=== PATIENT | male | born 1995 | race Caucasian/White ===

== ENCOUNTER 2021-02-07 08:28 | Emergency (ER) | payer MEDICAID, SELFPAY ==
[2021-02-07 08:29] VITALS: BP 140/72; PULSE 85; RESP 18; TEMP 37.1; O2SAT 98; BMI 29.2
--- NOTE | 2021-02-07 08:56 | HMH.EDABDPAI ---
ED Disposition Clinical Impression: Gastroenteritis, Fatty liver Disposition: Home, Self-Care Condition on Discharge: Good Instructions: DI for Acute Abdominal Pain Prescriptions: Ondansetron [Zofran 4mg ODT] 4 mg PO BIDP PRN #10 tab PRN Reason: Nausea Transmission Status: Pending to [id number] Referrals: Demian Prado APRN [Primary Care Provider] - - Critical Care Critical Care Time: No Attestation: On 02/07/21, the high probability of a clinically significant, sudden or life threatening deterioration of the following system(s) required my full and direct attention, intervention and personal management. The time I documented below is in addition to time spent performing reported procedures but includes the following listed in this critical care notation. Medical Decision Making - Medical Records Medical records reviewed: Yes: I reviewed the patient's medical records. - Dimitry Inquiry Pt receiving controlled substance: No Vital Signs: 02/07/21 08:29 02/07/21 09:00 Temperature 98.7 F Temperature Source Oral Pulse Rate 70 Pulse Rate [Radial] 85 Respiratory Rate 18 Blood Pressure 125/72 Blood Pressure [Right Arm] 140/72 Blood Pressure Mean 84 Blood Pressure Mean [Right Arm] 94 Blood Pressure Position [Right Arm] Sitting 02 Sat by Pulse Oximetry 98 98 Oxygen Delivery Method Room Air Room Air - Lab Data Lab Results 02/07/21 08:57: WBC 6.7, RBC 4.92, Hgb 15.4, Hct 44.8, MCV 91.1, MCH 31.2, MCHC 34.3, RDW 13.3, Plt Count 326, MPV 8.3, Neut % (Auto) 59.4, Lymph % (Auto) 28.0, [place] % (Auto) 10.1 H, Eos % (Auto) 1.2, Baso % (Auto) 1.3, Neut # (Auto) 4.0, Lymph # (Auto) 1.9, [place] # (Auto) 0.7, Eos # (Auto) 0.1, Baso # (Auto) 0.1 02/07/21 08:57: Sodium 139, Potassium 3.3 L, Chloride 101, Carbon Dioxide 25, Anion Gap 16.3 H, BUN 11, Creatinine 0.70, Estimated Creat Clear 215, Estimated GFR 136, Est GFR ( Amer) 165, Glucose 104 H, Calcium 9.2, Total Bilirubin 1.6 H, AST 75 H, ALT 94 H, Alkaline Phosphatase 62, Total Protein 7.6, Albumin 4.7, Globulin 2.9, Albumin/Globulin Ratio 1.6, Lipase 37 02/07/21 09:30: Urine Color Yellow, Urine Appearance Clear, Urine pH 6.5, Ur Specific [place] 1.015, Urine Protein Negative, Urine Glucose (UA) Negative, Urine Ketones 1+, Urine Blood Trace-i, Urine Nitrate Negative, Urine Bilirubin 1+ A, Urine Urobilinogen 1.0, Ur Leukocyte Esterase Negative, Urine RBC 5-10, Urine WBC 3-5, Ur Squamous Epith Cells Occasional, Urine Bacteria None 02/07/21 09:30: Urine HCG, Qual Negative Result diagrams: 02/07/21 08:57 02/07/21 08:57 Orders (Tests/Meds): ED MEDICATIONS Generic Name Dose Route Start Last Admin Trade Name Freq PRN Reason Stop Dose Admin Sodium Chloride 8 ml 02/07/21 08:49 Sodium Chloride 0.9% 10ml Vial IV 03/09/21 08:48 NEEDED PRN dilute pepcid Discontinued Medications Generic Name Dose Route Start Last Admin Trade Name Freq PRN Reason Stop Dose Admin Famotidine 20 mg 02/07/21 08:49 02/07/21 09:01 Famotidine 20mg/2ml Vial IV 02/07/21 08:50 20 mg ONCE ONE Administration Sodium Chloride 1,000 mls @ 999 mls/hr 02/07/21 09:00 02/07/21 09:00 Sod Chlor 0.9% 1000ml Bag IV 02/07/21 10:00 999 mls/hr .Q1H1M SABINE Administration Iopamidol 75 ml 02/07/21 10:43 02/07/21 10:44 Iopamidol-370 (76%);100ml Bottle IV 02/07/21 10:44 75 ml ONCE ONE Administration Ketorolac Tromethamine 30 mg 02/07/21 08:49 02/07/21 08:59 Ketorolac 30mg/Ml Vial IV 02/07/21 08:50 30 mg ONCE ONE Administration Ondansetron HCl 4 mg 02/07/21 08:49 02/07/21 09:01 Ondansetron 4mg/2ml Vial IV 02/07/21 08:50 4 mg ONCE ONE Administration Sodium Chloride 10 ml 02/07/21 10:43 02/07/21 10:44 Sodium Chloride 0.9% 10ml Syr (Rad Only) IV 02/07/21 10:44 10 ml ONCE ONE Administration - CT Data CT Scan: Abdomen, Pelvis Time Received: 11:[address] Reviewed: Yes: I have reviewed the patient'
[2021-02-07 09:00] VITALS: BP 125/72; PULSE 70; O2SAT 98
[2021-02-07 09:08] LABS: Basophils # 0.1 K/mm3 (0-0.2); Basophils % 1.3 % (0.1-2.0); Eosinophils # 0.1 K/mm3 (0.0-0.4); Eosinophils % 1.2 % (0.1-12.0); Hematocrit 44.8 % (42.0-52.0); Hemoglobin 15.4 g/dL (14.1-18.0); Lymphocytes # 1.9 K/mm3 (0.7-4.5); Mean Corpuscular HGB Conc 34.3 g/dL (31.8-35.4); Mean Corpuscular Hemoglobin 31.2 pg (27.0-31.2); Mean Corpuscular Volume 91.1 fl (80-94); Mean Platelet Volume 8.3 fl (7.4-10.4); Monocytes # 0.7 K/mm3 (0.1-1.0); Monocytes % 10.1 % (1.7-9.3); Neutrophils % 59.4 % (37.0-80.0); Platelet Count 326 K/mm3 (142-424); Red Blood Count 4.92 M/mm3 (4.60-6.20); Red Cell Distribution Width 13.3 % (11.5-17.5); White Blood Count 6.7 K/mm3 (4.8-10.8)
[2021-02-07 09:14] LABS: Chloride 101 mmol/L (98-107)
[2021-02-07 09:15] LABS: Potassium 3.3 mmoL/L (3.5-5.1); Sodium 139 mmol/L (136-145)
[2021-02-07 09:17] LABS: Alanine Aminotransferase 94 U/L (12-78); Albumin Level 4.7 g/dl (3.5-5.0); Albumin/Globulin Ratio 1.6 (1.1-1.8); Alkaline Phosphatase 62 U/L (38-126); Anion Gap 16.3 mEq/L (5-15); Aspartate Amino Transferase 75 U/L (17-59); Bilirubin,Total 1.6 mg/dl (0.2-1.3); Blood Urea Nitrogen 11 mg/dl (9-20); Calcium 9.2 mg/dl (8.4-10.2); Carbon Dioxide 25 mmol/L (22.0-30.0); Creatinine Clearance Estimated 215 mL/min (50-200); Estimated Glomerular Filt Rate 136 ml/min (>60); GFR (African American) 165 ML/MIN (>60); Globulin 2.9 g/dL (1.3-3.2); Glucose 104 mg/dl (74-100); Lipase 37 U/L (23-300); Total Protein,Serum 7.6 g/dl (6.3-8.2)
[2021-02-07 09:40] LABS: Microscopic, Urine URINE MICROSCOPIC (MICROSCOPIC)
[2021-02-07 09:42] LABS: Appearance,Urine CLEAR (Clear); Blood, Urine TRACE-I (Negative); Color,Urine YELLOW (Yellow); Glucose,Urine (UA) Negative (Negative); Ketones,Urine 1+ (Negative); Leukocyte Esterase,Urine Negative (Negative); Nitrate,Urine Negative (Negative); PH,Urine 6.5 (5.0-8.5); Protein,Urine Negative (Negative); Specific Gravity, Urine 1.015 (1.005-1.030)
[2021-02-07 09:43] LABS: Bilirubin,Urine 1+ (Negative)
[2021-02-07 09:54] LABS: Squamous Epithelial Cell,Urine Occasional #/hpf (0-5)
--- NOTE | 2021-02-07 10:08 | CT_ITS ---
PROCEDURE: CT ABDOMEN PELVIS W CON CLINICAL INDICATION: abd pain Abdominal pain with nausea and vomiting ATU COMPARISON: CT ABDPELWO CT abdomen pelvis wo con from 05/25/2018 TECHNIQUE: IV Contrast: 75ML Isovue 370 Oral Contrast None Axial images obtained with sagittal and coronal reformats. All CT scans at the facility use one or more dose reduction, viz: automated exposure control, ma/kV adjustment per patient size (including targeted exams where dose is matched to indication, i.e. head), or iterative reconstruction technique. FINDINGS: LOWER THORAX: No acute finding ABDOMEN & PELVIS: Fatty liver. Areas somewhat heterogeneous enhancement noted in the central aspect of the liver in the left hepatic lobe posteriorly segment 8 and in the pericholecystic region. These could be due areas of focal fatty sparing. Nonemergent MRI could confirm. The gallbladder, spleen, adrenal glands, pancreas, have an unremarkable appearance. There is a nonobstructing stone in the mid to lower pole of the right kidney at 4 mm. A 2 mm stone is present in the upper pole of the left kidney. No ureteral calculi are evident. No evidence of appendicitis. No intestinal obstruction or free air. No pelvic mass or abnormal fluid collection. No acute bony findings. IMPRESSION: No acute finding. Nonobstructing bilateral renal calculi. Fatty liver with heterogeneous enhancement within the liver as described above which may be related to focal fatty sparing which could be confirmed with nonemergent MRI of the liver without and with contrast. Dictated by: Tru Crum MD 02/07/2021 11:21 Tru Crum MD in [place] 02/07/2021 11:21
[2021-02-07 10:24] LABS: Urine Pregnancy, HCG Qual. Negative
--- NOTE | 2021-02-07 10:32 | PC.NURSE ---
pt to CT
[2021-02-07 11:42] VITALS: BP 116/86; PULSE 69; RESP 16; TEMP 36.6; O2SAT 98
== END 2021-02-07 11:44 | disposition home or self-care (01) ==
PROVIDERS: Emergency Provider Emergency Medicine; PCP Nurse Practitioner Family
DX: K52.9 Noninfective gastroenteritis and colitis, unspecified (principal); K76.0 Fatty (change of) liver, not elsewhere classified; F17.210 Nicotine dependence, cigarettes, uncomplicated
CPT/HCPCS: 74177; 80053; 81001; 81025; 83690; 85025; 96365; 96375; 99283; J2405; Q9967

== ENCOUNTER → 2021-02-28 12:25 | Outpatient (CLI) | payer MEDICAID, SELFPAY | PROVIDERS: Visit Provider Nurse Practitioner | DX: Z20.822 Contact with and (suspected) exposure to COVID-19 (principal) | CPT/HCPCS: C9803; U0003; U0005 ==

== ENCOUNTER → 2021-03-03 21:51 | Outpatient (CLI) | payer MEDICAID, SELFPAY | PROVIDERS: Visit Provider Nurse Practitioner Family | DX: Z20.822 Contact with and (suspected) exposure to COVID-19 (principal) | CPT/HCPCS: C9803; U0003; U0005 ==

== ENCOUNTER 2021-03-12 06:05 | Emergency (ER) | payer MEDICAID, SELFPAY ==
[2021-03-12 05:27] VITALS: BP 154/109; PULSE 75; RESP 16; TEMP 36.6; O2SAT 98; BMI 25.1
--- NOTE | 2021-03-12 05:38 | CT_ITS ---
PROCEDURE INFORMATION: Exam: CT Abdomen And Pelvis With Contrast Exam date and time: 03/12/2021 5:38 AM Age: 26 years old Clinical indication: Nausea and vomiting; Abdominal pain; Localized; Right lower quadrant (rlq); Patient HX: Rlq pain for 30 min with n/v; Additional info: Rlq abdominal pain TECHNIQUE: Imaging protocol: Computed tomography of the abdomen and pelvis with contrast. Radiation optimization: All CT scans at this facility use at least one of these dose optimization techniques: automated exposure control; mA and/or kV adjustment per patient size (includes targeted exams where dose is matched to clinical indication); or iterative reconstruction. Contrast material: ISOVUE; Contrast volume: 70 ml; Contrast route: IV; COMPARISON: CT ABDOMEN PELVIS W CON 02/07/2021 10:31 AM FINDINGS: Liver: Fatty infiltration. Gallbladder and bile ducts: No calcified stones. No ductal dilation. Pancreas: Unremarkable. No ductal dilation. Spleen: No splenomegaly. Adrenal glands: No mass. Kidneys and ureters: Few punctate calculi within kidneys. Mild pelvocaliectasis of RIGHT kidney. Mild dilatation of RIGHT proximal to mid ureter. 0.3 x 0.3 x 0.3 cm calculus within RIGHT mid to distal ureter. Stomach and bowel: No definite mural thickening. No obstruction. Appendix: Normal caliber. No inflammation. Intraperitoneal space: No significant fluid collection. No definite free air. Vasculature: Unremarkable. No aneurysm. Lymph nodes: No pathologically enlarged lymph nodes. Urinary bladder: Unremarkable. Reproductive: Unremarkable as visualized. Bones/joints: No acute fracture. Soft tissues: Unremarkable. IMPRESSION: RIGHT mid to distal ureteral calculus with mild hydroureteronephrosis.
[2021-03-12 05:51] LABS: Basophils # 0.1 K/mm3 (0-0.2); Basophils % 1.7 % (0.1-2.0); Eosinophils # 0.2 K/mm3 (0.0-0.4); Eosinophils % 1.7 % (0.1-12.0); Hematocrit 50.7 % (42.0-52.0); Hemoglobin 17.1 g/dL (14.1-18.0); Lymphocytes # 3.6 K/mm3 (0.7-4.5); Mean Corpuscular HGB Conc 33.7 g/dL (31.8-35.4); Mean Corpuscular Hemoglobin 30.8 pg (27.0-31.2); Mean Corpuscular Volume 91.4 fl (80-94); Mean Platelet Volume 8.5 fl (7.4-10.4); Monocytes # 0.5 K/mm3 (0.1-1.0); Neutrophils # 4.2 K/mm3 (1.8-7.8); Neutrophils % 48.6 % (37.0-80.0); Platelet Count 375 K/mm3 (142-424); Red Blood Count 5.55 M/mm3 (4.60-6.20); Red Cell Distribution Width 13.2 % (11.5-17.5); White Blood Count 8.7 K/mm3 (4.8-10.8)
[2021-03-12 05:52] LABS: Chloride 103 mmol/L (98-107); Sodium 138 mmol/L (136-145)
[2021-03-12 05:53] LABS: Potassium 3.8 mmoL/L (3.5-5.1)
[2021-03-12 05:55] LABS: Alanine Aminotransferase 68 U/L (12-78); Alkaline Phosphatase 66 U/L (38-126); Aspartate Amino Transferase 48 U/L (17-59); Bilirubin,Total 0.6 mg/dl (0.2-1.3); Blood Urea Nitrogen 9 mg/dl (9-20); Creatinine Clearance Estimated 185 mL/min (50-200); Estimated Glomerular Filt Rate 136 ml/min (>60); GFR (African American) 165 ML/MIN (>60)
[2021-03-12 05:56] LABS: Albumin Level 4.6 g/dl (3.5-5.0); Albumin/Globulin Ratio 1.8 (1.1-1.8); Anion Gap 15.8 mEq/L (5-15); Calcium 9.2 mg/dl (8.4-10.2); Carbon Dioxide 23 mmol/L (22.0-30.0); Globulin 2.6 g/dL (1.3-3.2); Glucose 140 mg/dl (74-100); Total Protein,Serum 7.2 g/dl (6.3-8.2)
[2021-03-12 06:01] LABS: C-Reactive Protein 1.6 mg/L (0-4)
[2021-03-12 06:03] VITALS: BP 202/113; PULSE 71; RESP 18; O2SAT 100
--- NOTE | 2021-03-12 06:09 | HMH.EDNVD ---
ED Disposition Clinical Impression: Renal colic on right side Disposition: Home, Self-Care Condition on Discharge: Good Instructions: DI for Kidney Stones Additional Instructions: use meds and see pcp for follow up Prescriptions: Tamsulosin HCl [Flomax 0.4mg capsule] 0.4 mg PO HS #10 cap Transmission Status: Pending to [id number] Referrals: Demian Prado APRN [Primary Care Provider] - Dean Prado MD [Staff Physician] - - Critical Care Critical Care Time: No Attestation: On , the high probability of a clinically significant, sudden or life threatening deterioration of the following system(s) required my full and direct attention, intervention and personal management. The time I documented below is in addition to time spent performing reported procedures but includes the following listed in this critical care notation. Medical Decision Making - Medical Records Medical records reviewed: Yes: I reviewed the patient's medical records. - Dimitry Inquiry Pt receiving controlled substance: No Vital Signs: 03/12/21 05:27 Temperature 97.8 F Temperature Source Oral Pulse Rate [Right Radial] 75 Respiratory Rate 16 Blood Pressure [Right Arm] 154/109 H Blood Pressure Mean [Right Arm] 124 Blood Pressure Source [Right Arm] Automatic Cuff Blood Pressure Position [Right Arm] Sitting 02 Sat by Pulse Oximetry 98 Oxygen Delivery Method Room Air - Lab Data Lab results reviewed: Yes: I reviewed the patient's lab results. Lab Results 03/12/21 05:33: WBC 8.7, RBC 5.55, Hgb 17.1, Hct 50.7, MCV 91.4, MCH 30.8, MCHC 33.7, RDW 13.2, Plt Count 375, MPV 8.5, Neut % (Auto) 48.6, Lymph % (Auto) 42.0, [place] % (Auto) 6.0, Eos % (Auto) 1.7, Baso % (Auto) 1.7, Neut # (Auto) 4.2, Lymph # (Auto) 3.6, [place] # (Auto) 0.5, Eos # (Auto) 0.2, Baso # (Auto) 0.1, ESR 2 03/12/21 05:33: Sodium 138, Potassium 3.8, Chloride 103, Carbon Dioxide 23, Anion Gap 15.8 H, BUN 9, Creatinine 0.70, Estimated Creat Clear 185, Estimated GFR 136, Est GFR ( Amer) 165, Glucose 140 H, Calcium 9.2, Total Bilirubin 0.6, AST 48, ALT 68, Alkaline Phosphatase 66, C-Reactive Protein 1.6, Total Protein 7.2, Albumin 4.6, Globulin 2.6, Albumin/Globulin Ratio 1.8, Procalcitonin 0.059 Result diagrams: 03/12/21 05:33 03/12/21 05:33 Orders (Tests/Meds): ED MEDICATIONS Generic Name Dose Route Start Last Admin Trade Name Freq PRN Reason Stop Dose Admin Lactated Ringer's 1,000 mls @ 999 mls/hr 03/12/21 05:45 03/12/21 05:47 Lactated Ringer's 1000 Ml Bag IV 03/12/21 06:45 999 mls/hr .Q1H1M SABINE Administration Discontinued Medications Generic Name Dose Route Start Last Admin Trade Name Freq PRN Reason Stop Dose Admin Iopamidol 70 ml 03/12/21 05:56 03/12/21 05:56 Iopamidol-370 (76%);100ml Bottle IV 03/12/21 05:57 70 ml ONCE ONE Administration Ketorolac Tromethamine 30 mg 03/12/21 05:38 03/12/21 05:46 Ketorolac 30mg/Ml Vial IV 03/12/21 05:39 30 mg ONCE ONE Administration Morphine Sulfate 4 mg 03/12/21 06:06 Morphine 4mg/Ml Syringe IV 03/12/21 06:07 ONCE ONE Ondansetron HCl 4 mg 03/12/21 05:38 03/12/21 05:46 Ondansetron 4mg/2ml Vial IV 03/12/21 05:39 4 mg ONCE ONE Administration Promethazine HCl 25 mg 03/12/21 05:58 03/12/21 06:05 Promethazine Hcl 25mg/Ml 1ml Vial IV 03/12/21 05:59 25 mg ONCE ONE Administration Sodium Chloride 10 ml 03/12/21 05:56 03/12/21 05:56 Sodium Chloride 0.9% 10ml Syr (Rad Only) IV 03/12/21 05:57 10 ml ONCE ONE Administration Sodium Chloride 25 ml 03/12/21 05:58 03/12/21 06:05 Sodium Chloride 0.9% 25ml Bag IV 03/12/21 05:59 25 ml ONCE ONE Administration Tamsulosin HCl 0.4 mg 03/12/21 21:00 Tamsulosin 0.4mg Capsule PO 04/11/21 20:59 HS [facility] Tamsulosin HCl 0.4 mg 03/12/21 06:25 03/12/21 06:26 Tamsulosin 0.4mg Capsule PO 03/12/21 06:26 0.4 mg ONCE ONE Administration ORDERS Category Date Time Statu
[2021-03-12 06:12] LABS: Microscopic, Urine URINE MICROSCOPIC (MICROSCOPIC)
[2021-03-12 06:13] LABS: Procalcitonin 0.059 ng/mL (0.0-2.0)
[2021-03-12 06:23] LABS: Erythrocyte Sedimentation Rate 2 mm/hr (0-15)
[2021-03-12 06:28] LABS: Appearance,Urine CLOUDY (Clear); Blood, Urine 3+ (Negative); Color,Urine YELLOW (Yellow); Glucose,Urine (UA) Negative (Negative); Ketones,Urine Negative (Negative); Leukocyte Esterase,Urine Negative (Negative); Nitrate,Urine Negative (Negative); PH,Urine 5.5 (5.0-8.5); Protein,Urine 2+ (Negative); Specific Gravity, Urine 1.025 (1.005-1.030)
[2021-03-12 06:31] VITALS: BP 187/111; PULSE 82; RESP 18; O2SAT 99
[2021-03-12 06:37] LABS: Bilirubin,Urine 1+ (Negative)
[2021-03-12 06:42] LABS: Amorphous Sediment,Urine 1+ /lpf
[2021-03-12 07:00] VITALS: BP 128/85; PULSE 75; RESP 18; O2SAT 100
[2021-03-12 07:36] VITALS: BP 128/85; PULSE 81; RESP 16; TEMP 36.9; O2SAT 96
== END 2021-03-12 07:42 | disposition home or self-care (01) ==
PROVIDERS: Emergency Provider Emergency Medicine; PCP Nurse Practitioner Family
DX: N23 Unspecified renal colic (principal); R10.31 Right lower quadrant pain
CPT/HCPCS: 74177; 80053; 81001; 84145; 85025; 85651; 86140; 96365; 96375; 99283; J2405; Q9967

== ENCOUNTER 2024-03-27 11:55 | Outpatient (CLI) | payer OTHER, SELFPAY ==
[2024-03-27 17:38] LABS: Coronavirus 19, PCR Not Detected (NotDetected); Influenza A, PCR Not Detected (NotDetected); Influenza B, PCR Not Detected (NotDetected)
== END 2024-03-27 23:59 | disposition home or self-care (01) ==
LOC: LAB.DROPOF 03-28 14:00
PROVIDERS: PCP Student in an Organized Health Care Education/Training Program; Visit Provider Student in an Organized Health Care Education/Training Program
DX: Z20.818 Contact with and (suspected) exposure to other bacterial communicable diseases (principal); Z20.822 Contact with and (suspected) exposure to COVID-19
CPT/HCPCS: 87070; 87636

== ENCOUNTER 2024-05-09 14:31 | Outpatient (CLI) | payer OTHER, SELFPAY ==
--- NOTE | 2024-05-09 14:36 | CT_ITS ---
PROCEDURE INFORMATION: Exam: CT Head Without Contrast Exam date and time: 05/09/2024 2:42 PM Age: 29 years old Clinical indication: Pain; Headache; Additional info: Exertional headache TECHNIQUE: Imaging protocol: Computed tomography of the head without contrast. Radiation optimization: All CT scans at this facility use at least one of these dose optimization techniques: automated exposure control; mA and/or kV adjustment per patient size (includes targeted exams where dose is matched to clinical indication); or iterative reconstruction. COMPARISON: No relevant prior studies available. FINDINGS: Brain: There is no acute intracranial hemorrhage or abnormal extra-axial fluid collection identified. There is no intracranial mass effect or shift of midline structures. The swanson-white differentiation is preserved throughout. There is no sulcal effacement. The basilar cisterns are open. Cerebral ventricles: No hydrocephalus or ventricular effacement. Paranasal sinuses: There is mild sinus mucosal disease, with no air-fluid level identified. Mastoid air cells: There is no mastoid effusion detected. Bones: No calvarial fracture or destructive osseous lesions are seen. Soft tissues: Unremarkable. IMPRESSION: No acute intracranial pathology identified by CT.
--- NOTE | 2024-05-09 14:36 | CT_ITS ---
PROCEDURE INFORMATION: Exam: CTA Head With Contrast, Arteriography Exam date and time: 05/09/2024 2:45 PM Age: 29 years old Clinical indication: Pain; Headache; Additional info: Exertional MIRANDA TECHNIQUE: Imaging protocol: Computed tomographic angiography of the head with contrast. Exam focused on the arteries. 3D rendering (Not supervised by radiologist): MIP and/or 3D reconstructed images were created by the technologist. Radiation optimization: All CT scans at this facility use at least one of these dose optimization techniques: automated exposure control; mA and/or kV adjustment per patient size (includes targeted exams where dose is matched to clinical indication); or iterative reconstruction. Contrast material: ISO 370; Contrast volume: 80 ml; Contrast route: INTRAVENOUS (IV); COMPARISON: CT ANGIO HEAD 05/09/2024 2:45 PM FINDINGS: ANTERIOR CIRCULATION: Right internal carotid artery: Intracranial segment is patent with no significant stenosis. No aneurysm. Right middle cerebral artery: No occlusion or significant stenosis. No aneurysm. Right anterior cerebral artery: No occlusion or significant stenosis. No aneurysm. Left internal carotid artery: Intracranial segment is patent with no significant stenosis. No aneurysm. Left middle cerebral artery: No occlusion or significant stenosis. No aneurysm. Left anterior cerebral artery: No occlusion or significant stenosis. No aneurysm. POSTERIOR CIRCULATION: Right vertebral artery: No occlusion or significant stenosis. No aneurysm. Left vertebral artery: No occlusion or significant stenosis. No aneurysm. Basilar artery: No occlusion or significant stenosis. No aneurysm. Right posterior cerebral artery: No occlusion or significant stenosis. No aneurysm. Left posterior cerebral artery: No occlusion or significant stenosis. No aneurysm. IMPRESSION: No significant abnormality involving the major intracranial arteries.
--- NOTE | 2024-05-09 14:36 | CT_ITS ---
PROCEDURE INFORMATION: Exam: CTA Neck With Contrast Exam date and time: 05/09/2024 2:45 PM Age: 29 years old Clinical indication: Pain; Headache; Additional info: Exertional MIRANDA TECHNIQUE: Imaging protocol: Computed tomographic angiography of the neck with contrast. Exam focused on the cervical segments of the vasculature. 3D rendering (Not supervised by radiologist): MIP and/or 3D reconstructed images were created by the technologist. Radiation optimization: All CT scans at this facility use at least one of these dose optimization techniques: automated exposure control; mA and/or kV adjustment per patient size (includes targeted exams where dose is matched to clinical indication); or iterative reconstruction. Contrast material: ISO 370; Contrast volume: 80 ml; Contrast route: INTRAVENOUS (IV); COMPARISON: CT ANGIO HEAD 05/09/2024 2:45 PM FINDINGS: Right common carotid artery: No stenosis. No dissection or occlusion. Right internal carotid artery: No stenosis of the extracranial segment. No dissection or occlusion. Right external carotid artery: No occlusion or stenosis of the origin. Left common carotid artery: No stenosis. No dissection or occlusion. Left internal carotid artery: No stenosis of the extracranial segment. No dissection or occlusion. Left external carotid artery: No occlusion or stenosis of the origin. Right vertebral artery: No stenosis. No dissection or occlusion. Left vertebral artery: No stenosis. No dissection or occlusion. Soft tissues: Normal. No significant soft tissue swelling. Bones/joints: No acute fracture. IMPRESSION: No acute arterial abnormality identified in the neck. REFERENCES: NASCET CRITERIA. The degree of stenosis in the cervical segment of the internal carotid artery is based on NASCET criteria. Normal is no stenosis. Mild is less than 50% stenosis. Moderate is 50-69% stenosis. Severe is 70% to 99% stenosis. Total occlusion is no detectable patent lumen.
[2024-05-09] MEDS: SODIUM CHLORIDE 0.9% 10ML SYR (RAD ONLY) 10 ML IV (14:45)
[2024-05-09] MEDS: IOPAMIDOL-370 (76%);100ML BOTTLE 80 ML IV (14:45)
[2024-05-09] MEDS: 0.9 % SODIUM CHLORIDE 50 ML VIAL IV (14:45)
== END 2024-05-09 23:59 | disposition home or self-care (01) ==
LOC: RAD 14:33
PROVIDERS: PCP Student in an Organized Health Care Education/Training Program; Visit Provider Student in an Organized Health Care Education/Training Program
DX: G44.52 New daily persistent headache (NDPH) (principal); G44.84 Primary exertional headache
CPT/HCPCS: 70450; 70496; 70498; Q9967